=== PATIENT | female | born 1990 | race Two or more races ===

== ENCOUNTER 2017-10-21 19:25 | Emergency (ER) | payer SELFPAY ==
[~2017-10-21] VITALS: Ht 152.4 cm; Wt 72.6 kg
--- NOTE | 2017-10-21 20:20 | NUR ---
DR VEGAS AT BEDSIDE FOR MSE.
[2017-10-21 20:44] VITALS: BP 128/94
--- NOTE | 2017-10-21 20:45 | NUR ---
Patient discharged to home in stable conditon. Written and verbal after care instructions given. Patient verbalizes understanding of instructions. Shoulder sling palced. Pt ambulated out of ER in steady gait accompanied by friend. VSS. No acute distress noted.
== END 2017-10-21 20:48 | disposition home or self-care (01) ==
LOC: ER 19:29
DX: S46.212A Strain of muscle, fascia and tendon of other parts of biceps, left arm, initial encounter (principal); X58.XXXA Exposure to other specified factors, initial encounter; Y93.89 Activity, other specified; Y92.89 Other specified places as the place of occurrence of the external cause; Y99.8 Other external cause status
CPT/HCPCS: 29105; 99283; A4663